=== PATIENT | female | born 1935 | race Caucasian/White ===

== ENCOUNTER → 2017-04-26 | Outpatient (CLI) | payer MEDICARE | END | disposition home or self-care (01) | LOC: GMAJ 12:21 | PROVIDERS: ATTEND Family Medicine | DX: D51.3 Other dietary vitamin B12 deficiency anemia (principal); E55.9 Vitamin D deficiency, unspecified ==

== ENCOUNTER → 2017-06-14 | Outpatient (CLI) | payer MEDICARE ==
--- NOTE | 2017-06-18 07:59 | US ---
EXAM DESCRIPTION: Extremity,Lower [place] Arteries CLINICAL HISTORY: PVD COMPARISON: None. TECHNIQUE: Doppler evaluation of the bilateral lower extremity arterial flow waveforms and velocities. FINDINGS: Arterial waveforms in the right lower extremity are triphasic in the right common femoral artery. Biphasic in the right femoral artery, deep femoral artery, popliteal artery and peroneal artery. Monophasic in the right dorsalis pedis. No flow in the right posterior tibial artery. Arterial waveforms in the left lower extremity are triphasic in the left common femoral artery. Biphasic in the left deep femoral artery, superficial femoral artery, popliteal artery, peroneal artery, and dorsalis pedis artery. No flow in the left EQUIP TECH.. Comments: Atherosclerotic changes are noted on the larger vessels. IMPRESSION: 1. No flow in the bilateral posterior tibial arteries. Flow in the bilateral peroneal arteries, suggesting occlusive lesions in the distal peroneal trunk or proximal EQUIP TECH's. 2. Decreased flow in the right dorsalis pedis artery. Consider follow-up bilateral lower extremity CTA. Electronically signed by: Cesar Jimenez MD 06/18/2017 7:58 AM CDT
== END ==
LOC: US 09:23
PROVIDERS: ATTEND Family Medicine
DX: I70.203 Unspecified atherosclerosis of native arteries of extremities, bilateral legs (principal); M79.89 Other specified soft tissue disorders; R60.0 Localized edema

== ENCOUNTER → 2017-07-23 | Outpatient (CLI) | payer MEDICARE | END | disposition home or self-care (01) | LOC: GMA 16:32 | PROVIDERS: ATTEND Physician Assistant | DX: N39.0 Urinary tract infection, site not specified (principal) ==

== ENCOUNTER → 2017-12-10 | Outpatient (CLI) | payer MEDICARE | LOC: GMAL 10:48 | PROVIDERS: ATTEND Family Medicine | DX: D51.3 Other dietary vitamin B12 deficiency anemia (principal); R53.82 Chronic fatigue, unspecified ==

== ENCOUNTER → 2018-01-03 | Outpatient (CLI) | payer MEDICARE | LOC: GMATM 19:16 | PROVIDERS: ATTEND Nurse Practitioner Family | DX: N39.0 Urinary tract infection, site not specified (principal) ==

== ENCOUNTER 2019-09-27 17:30 | Emergency (ER) | payer MEDICARE ==
--- NOTE | 2019-09-27 17:49 | ED.PDOC ---
History of Present Illness - General Stated Complaint: painful urination Time Seen by Provider: 09/27/19 17:42 Source: patient, RN notes reviewed, Vital Signs reviewed, family Exam Limitations: no limitations Additional Information: this is an 83-year-old white female who presents today with complaints of painful urination. This just started abruptly. She denies having any back pain, nausea, vomiting, or fever. She states that she has had increased frequency as well as burning. Several times per year she reports having urinary tract infections. - History of Present Illness Allergies/Adverse Reactions: Allergies Ciprofloxacin [From Cipro] Allergy (Verified 09/27/19 18:00) Nitrofurantoin [From Macrodantin] Allergy (Verified 09/27/19 18:00) Home Medications: Ambulatory Orders Gabapentin 300 mg PO DAILY 02/16/19 Lisinopril 20 mg PO BID 02/16/19 Lovastatin 20 mg PO DAILY 02/16/19 Metoprolol Tartrate 100 mg PO DAILY 02/16/19 Omeprazole 20 mg PO DAILY 02/16/19 Chlorthalidone 50 mg PO DAILY 09/27/19 Phenazopyridine HCl [Pyridium] 200 mg PO TID #6 tab 09/27/19 Sulfa/Trimeth 800/160 (Ds) Tab [Bactrim DS] 1 tablet PO BID #14 tab 09/27/19 Review of Systems - Review of Systems Constitutional: States: no symptoms reported Respiratory: States: no symptoms reported Gastrointestinal/Abdominal: States: no symptoms reported Genitourinary: States: dysuria, frequency, pain. Denies: discharge, hematuria Skin: States: no symptoms reported Neurological: States: no symptoms reported All other Systems: Reviewed and Negative Past Medical History (General) - Patient Medical History Hx Stroke: No Hx Congestive Heart Failure: No Hx Hypertension: Yes Hx Diabetes: No Hx Gastroesophageal Reflux: Yes Hx MRSA: No - Vaccination History Hx Influenza Vaccination: Yes - 2018 Hx Pneumococcal Vaccination: Yes - Social History Hx Tobacco Use: No Hx Alcohol Use: No Hx Substance Use: No Hx Substance Use Treatment: No Hx Depression: No - Female History Patient : No Family Medical History - Family History Mother Family History: Unknown Living Status: Unknown Physical Exam - Physical Exam General Appearance: Alert, No apparent distress Eyes, Ears, Nose, Throat Exam: PERRL/EOMI, normal ENT inspection Cardiovascular/Respiratory: regular rate, rhythm, no M/R/G, normal peripheral pulses, no JVD, normal breath sounds, no respiratory distress Gastrointestinal/Abdominal: normal bowel sounds, non tender, soft, no organomegaly, no pulsatile mass, other - no suprapubic tenderness Rectal Exam: deferred Back Exam: normal inspection, no CVA tenderness 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 Patient will have urine analysis as well as a urine culture performed. We will treat as appropriate. - Results/Orders Results/Orders: Laboratory Tests 09/27/19 18:00 Urine Color Dk yellow H Urine Appearance Sl cloudy Urine pH 6.5 Ur Specific [place] 1.025 Urine Protein Negative Urine Glucose (UA) Negative Urine Ketones Negative Urine Blood Trace-lysed H Urine Nitrite Negative Urine Bilirubin Negative Urine Urobilinogen 1.0 Ur Leukocyte Esterase Large H Urine RBC 0-1 Urine WBC 30-40 H Ur Epithelial Cells 0-1 Urine Bacteria 1+ Departure - Departure Clinical Impression: Urinary tract infection Qualifiers: Urinary tract infection type: acute cystitis Hematuria presence: with hematuria Qualified Code(s): N30.01 - Acute cystitis with hematuria Time of Disposition: 18:28 Disposition: Discharge to Home or Self Care Condition: Good Instructions: DI for Urinary Tract Infection (UTI) Referrals: Milan Pardo III, MD [Primary Care Provider] - 1-2 Weeks Prescriptions: Phenazopyridine HCl [Pyridium] 200 mg PO TID #6 tab Sulfa/Trimeth 800/160 (Ds) Tab [Bactrim DS] 1 tablet PO BID #14 tab Home Medications: Ambulatory Orders Gabapentin 300 mg PO DAILY 02/16/19 Lisinopril 20 mg PO BID 02/16/19 Lovastatin 20 mg PO DAILY 02/16/19 Metoprolol Tartrate 100 mg PO DAILY 02/16/19 Omeprazole 20 mg PO DAILY 02/16/19 Chlorthalidone 50 mg PO DAILY 09/27/19 Phenazopyridine HCl [Pyridium] 200 mg PO TID #6 tab 09/27/19 Sulfa/Trimeth 800/160 (Ds) Tab [Bactrim DS] 1 tablet PO BID #14 tab 09/27/19 Additional Instructions: Take medications as prescribed until complete. Encourage hydration. If any fever or back pain ensues seek reevaluation and follow up. Return to ER if needed.
[2019-09-27 18:00] VITALS: O2SAT 96
[2019-09-27] MEDS ORDERED: PHENAZOPYRIDINE HCL 200 MG TAB PO ONE (18:27)
[2019-09-27] MEDS ORDERED: SULFA/TRIMETH 800/160 (DS) TAB 1 EA TAB PO ONE (18:27)
[2019-09-27 19:00] VITALS: BP 191/83; TEMP 98.2
== END 2019-09-27 18:44 | disposition home or self-care (01) ==
LOC: ER 17:30
DX: N30.01 Acute cystitis with hematuria (principal); I10 Essential (primary) hypertension; K21.9 Gastro-esophageal reflux disease without esophagitis; Z79.899 Other long term (current) drug therapy; Z88.1 Allergy status to other antibiotic agents

== ENCOUNTER → 2020-06-11 | Outpatient (CLI) | payer MEDICARE | LOC: GMAJS 13:51 | PROVIDERS: ATTEND Physician Assistant | DX: N39.0 Urinary tract infection, site not specified (principal) ==

== ENCOUNTER 2020-07-06 11:31 | Emergency (ER) | payer MEDICARE ==
[2020-07-06 11:45] VITALS: TEMP 96.7
--- NOTE | 2020-07-06 11:47 | ED.PDOC ---
History of Present Illness - General Chief Complaint: General Stated Complaint: Weak, lightheaded Time Seen by Provider: 07/06/20 11:32 Source: patient, family Exam Limitations: no limitations Additional Information: Pt says she was walking towards the voting potter and started to feel generally weak and a little achy in posterior neck. Pt says by the time she was done voting, it felt like it was getting worse. She says she feels much better now. She never had syncope, CP, SOB. She has minimal cough, which is chronic for her. She denies fever, abd pain, N/V/D. She denies urinary symptoms. She says Dr. Pardo has been working over to the past several months to get her BP down (because they've had some difficulties doing so). - History of Present Illness Timing/Duration: 1/2 hour Severity: mild, moderate Improving Factors: rest Worsening Factors: movement Associated Symptoms: weakness Allergies/Adverse Reactions: Allergies Bupropion Allergy (Verified 07/06/20 12:08) Ciprofloxacin [From Cipro] Allergy (Verified 09/27/19 18:00) Doxycycline Allergy (Verified 07/06/20 12:08) Gemfibrozil Allergy (Verified 07/06/20 12:08) Methylprednisolone [From Medrol] Allergy (Verified 07/06/20 12:08) Nitrofurantoin [From Macrodantin] Allergy (Verified 09/27/19 18:00) Sulfa Antibiotics Allergy (Verified 07/06/20 12:08) Home Medications: Ambulatory Orders Lisinopril 20 mg PO BID 02/16/19 Metoprolol Tartrate 100 mg PO BID 02/16/19 Omeprazole 20 mg PO DAILY 02/16/19 Amlodipine Besylate 2.5 mg PO DAILY 07/06/20 Areds 1 ea PO BID 07/06/20 Aspirin [Aspirin Adult Low Dose] 81 mg PO DAILY 07/06/20 Cephalexin Monohydrate [Keflex] 500 mg PO TID #21 cap 07/06/20 Co Q-10 PO DAILY 07/06/20 Ipratropium/Albuterol [Duoneb] 1 saen IN Q6H PRN 07/06/20 Krill Oil PO DAILY 07/06/20 Olopatadine HCl [Olopatadine Hydrochloride] 0.2 % OP DAILY 07/06/20 Potassium 99 mg PO DAILY 07/06/20 Rosuvastatin Calcium 5 mg PO MOWEFRSA 07/06/20 Vitamin D PO DAILY 07/06/20 Vitamin E [E-400] 400 unit PO DAILY 07/06/20 hydrALAZINE HCl [(None)] 25 mg PO TID 07/06/20 Review of Systems - Review of Systems Constitutional: States: weakness. Denies: chills, diaphoresis, fever EENTM: States: no symptoms reported. Denies: blurred vision, double vision, ear pain, nose congestion Respiratory: States: no symptoms reported. Denies: cough, short of breath Gastrointestinal/Abdominal: States: no symptoms reported. Denies: abdominal pain, constipation, diarrhea, nausea, vomiting Genitourinary: States: no symptoms reported. Denies: dysuria, frequency, hematuria Musculoskeletal: States: neck pain - mild posterior neck "ache" Skin: States: no symptoms reported Neurological: States: no symptoms reported. Denies: anxiety, depressed, emotional problems, headache, numbness, paresthesia, tingling, tremors Endocrine: States: no symptoms reported Past Medical History (General) - Patient Medical History Hx Stroke: No Hx Asthma: Yes Hx of COPD: Yes Hx Cardiac Disorders: No Hx Congestive Heart Failure: No Hx Hypertension: Yes Hx Diabetes: No Hx Gastroesophageal Reflux: Yes Hx Cancer: No Hx MRSA: No - Vaccination History Hx Tetanus, Diphtheria Vaccination: Yes Hx Influenza Vaccination: Yes - 2018 Hx Pneumococcal Vaccination: Yes - Social History Hx Tobacco Use: No Hx Alcohol Use: No Hx Substance Use: No Hx Substance Use Treatment: No Hx Depression: No - Female History Patient : No Family Medical History - Family History Mother Family History: Unknown Living Status: Unknown Physical Exam - Physical Exam General Appearance: Alert, No apparent distress, Well Developed, Well Groomed, Well Hydrated, Well Nourished Ears, Nose, Throat: normal ENT inspection, normal pharynx Neck: non-tender, full range of motion, supple, normal inspection Respiratory: chest non-tender, lungs clear, normal breath sounds, no respiratory distress, no accessory muscle use Cardiovascular/Chest: normal peripheral pulses, regular rate, rhythm, no edema, no gallop, no JVD Gastrointestinal/Abdominal: normal bowel sounds, non tender, soft, no organomegaly Extremity: non-tender Neurologic: alert, normal mood/affect, oriented x 3 Skin Exam: normal color, warm/dry Progress - Progress Progress: 07/06/20 12:45 Laboratory Results WBC 7.0 K/mm3 (4.8-10.8) 07/06/20 12:05 RBC 4.58 M/mm3 (4.20-5.40) 07/06/20 12:05 Hgb 13.8 gm/dL (12.0-16.0) 07/06/20 12:05 Hct 40.1 % (36.0-47.0) 07/06/20 12:05 MCV 87.6 fl (81.0-99.0) 07/06/20 12:05 MCH 30.2 pg (27.0-31.0) 07/06/20 12:05 MCHC 34.5 g/dL (33.0-37.0) 07/06/20 12:05 RDW 14.6 % (11.5-14.5) H 07/06/20 12:05 Plt Count 201 K/mm3 (130-400) 07/06/20 12:05 MPV 7.6 fl (7.40-10.4) 07/06/20 12:05 Absolute Neuts (auto) 4.70 K/uL (1.8-6.8) 07/06/20 12:05 Absolute Lymphs (auto) 1.50 K/uL (1.0-3.4) 07/06/20 12:05 Absolute Monos (auto) 0.50 K/uL (0.2-0.8) 07/06/20 12:05 Absolute Eos (auto) 0.20 K/uL (0.0-0.4) 07/06/20 12:05 Absolute Basos (auto) 0.10 K/uL (0.0-0.1) 07/06/20 12:05 Neutrophils % 67.2 % (42.0-78.0) 07/06/20 12:05 Lymphocytes % 21.8 % (20.0-50.0) 07/06/20 12:05 Monocytes % 7.1 % (2.0-9.0) 07/06/20 12:05 Eosinophils % 2.7 % (1.0-5.0) 07/06/20 12:05 Basophils % 1.2 % (0.0-2.0) 07/06/20 12:05 Sodium 134 mmol/L (135-145) L 07/06/20 12:05 Potassium 3.8 mmol/L (3.6-5.0) 07/06/20 12:05 Chloride 99 mmol/L (101-111) L 07/06/20 12:05 Carbon Dioxide 21 mmol/L (21-31) 07/06/20 12:05 Anion Gap 17.8 (12-18) 07/06/20 12:05 BUN 22 mg/dL (7-18) H 07/06/20 12:05 Creatinine 1.54 mg/dL (0.6-1.3) H 07/06/20 12:05 BUN/Creatinine Ratio 14.3 (10-20) 07/06/20 12:05 Random Glucose 127 mg/dL (70-105) H 07/06/20 12:05 Serum Osmolality 273.2 mOsm/L (275-295) L 07/06/20 12:05 Lactic Acid 1.7 mmol/L (0.5-2.2) 07/06/20 12:05 Calcium 8.5 mg/dL (8.4-10.2) 07/06/20 12:05 Total Bilirubin 1.1 mg/dL (0.2-1.0) H 07/06/20 12:05 AST 20 IU/L (10-42) 07/06/20 12:05 ALT 22 IU/L (10-60) 07/06/20 12:05 Alkaline Phosphatase 80 IU/L (42-121) 07/06/20 12:05 Troponin I < 0.02 ng/mL (0.01-0.05) 07/06/20 12:05 Serum Total Protein 6.3 gm/dL (6.4-8.2) L 07/06/20 12:05 Albumin 3.8 g/dl (3.2-5.5) 07/06/20 12:05 Globulin 2.5 gm/dL (2.3-3.5) 07/06/20 12:05 Albumin/Globulin Ratio 1.5 (1.1-1.9) 07/06/20 12:05 Urine Color Yellow (Yellow) 07/06/20 12:45 Urine Appearance Sl cloudy (Clear) 07/06/20 12:45 Urine pH 6.0 (4.5-7.8) 07/06/20 12:45 Ur Specific [place] 1.020 (1.005-1.030) 07/06/20 12:45 Urine Protein Negative mg/dL 07/06/20 12:45 Urine Glucose (UA) Negative mg/dL (Negative) 07/06/20 12:45 Urine Ketones Negative mg/dL (NEGATIVE) 07/06/20 12:45 Urine Blood Negative (Negative) 07/06/20 12:45 Urine Nitrite Negative 07/06/20 12:45 Urine Bilirubin Negative (NEGATIVE) 07/06/20 12:45 Urine Urobilinogen 1.0 mg/dL (0.2-1.0) 07/06/20 12:45 Ur Leukocyte Esterase Small (Negative) H 07/06/20 12:45 Urine RBC 0 /hpf 07/06/20 12:45 Urine WBC 20-30 /hpf H 07/06/20 12:45 Ur Epithelial Cells 5-10 /hpf 07/06/20 12:45 Amorphous Sediment Trace 07/06/20 12:45 Urine Bacteria 1+ 07/06/20 12:45 Urine Mucus Trace 07/06/20 12:45 07/06/20 13:26 Systolic now 164. Pt feels back to baseline. D/w Dr. Pardo. He asked that pt decrease Hydralazine from 25mg TID to BID. He said we could treat urine, but make sure culture is sent. I shared my conversation with Edvin and his instructions to pt and daughter. They expressed no concerns about being d/c home. - EKG/XRAY/CT EKG: Sinus, nonspecific ST T wave Chg Comments: Rate 67, nl intervals, nl axis, no ST elevation Departure - Departure Clinical Impression: Weakness, Dehydration, UTI (urinary tract infection) Time of Disposition: 13:29 Disposition: Discharge to Home or Self Care Condition: Excellent Departure Forms: ED Discharge - Pt. Copy, Patient Portal Self Enrollment Diet: resume usual diet Activity: increase activity as tolerated Referrals: Milan Pardo III, MD [Primary Care Provider] - 1-2 Weeks Prescriptions: Cephalexin Monohydrate [Keflex] 500 mg PO TID #21 cap Home Medications: Ambulatory Orders Lisinopril 20 mg PO BID 02/16/19 Metoprolol Tartrate 100 mg PO BID 02/16/19 Omeprazole 20 mg PO DAILY 02/16/19 Amlodipine Besylate 2.5 mg PO DAILY 07/06/20 Areds 1 ea PO BID 07/06/20 Aspirin [Aspirin Adult Low Dose] 81 mg PO DAILY 07/06/20 Cephalexin Monohydrate [Keflex] 500 mg PO TID #21 cap 07/06/20 Co Q-10 PO DAILY 07/06/20 Ipratropium/Albuterol [Duoneb] 1 sean IN Q6H PRN 07/06/20 Krill Oil PO DAILY 07/06/20 Olopatadine HCl [Olopatadine Hydrochloride] 0.2 % OP DAILY 07/06/20 Potassium 99 mg PO DAILY 07/06/20 Rosuvastatin Calcium 5 mg PO MOWEFRSA 07/06/20 Vitamin D PO DAILY 07/06/20 Vitamin E [E-400] 400 unit PO DAILY 07/06/20 hydrALAZINE HCl [(None)] 25 mg PO TID 07/06/20
[2020-07-06] MEDS ORDERED: SODIUM CHLORIDE 0.9% 1000ML 1,000 ML IVS ONE (11:49)
[2020-07-06 13:58] VITALS: BP 159/87; O2SAT 97
== END 2020-07-06 13:40 | disposition home or self-care (01) ==
LOC: ER 11:31
DX: E86.0 Dehydration (principal); N39.0 Urinary tract infection, site not specified; R53.1 Weakness; J44.9 Chronic obstructive pulmonary disease, unspecified; K21.9 Gastro-esophageal reflux disease without esophagitis; I10 Essential (primary) hypertension; M54.2 Cervicalgia; Z79.899 Other long term (current) drug therapy; Z79.82 Long term (current) use of aspirin; Z88.2 Allergy status to sulfonamides; Z88.8 Allergy status to other drugs, medicaments and biological substances; Z88.1 Allergy status to other antibiotic agents
CPT/HCPCS: 36415; 80053; 81001; 83605; 84484; 85025; 87086; 93005; J7030

== ENCOUNTER → 2020-08-23 | Outpatient (CLI) | payer MEDICARE | LOC: GMAJS 16:46 | PROVIDERS: ATTEND Physician Assistant | DX: R30.0 Dysuria (principal); J06.9 Acute upper respiratory infection, unspecified ==

== ENCOUNTER → 2020-10-04 | Outpatient (CLI) | payer MEDICARE | LOC: GMAL 14:17 | PROVIDERS: ATTEND Family Medicine | DX: R39.15 Urgency of urination (principal) ==

== ENCOUNTER → 2020-10-14 | Outpatient (CLI) | payer MEDICARE ==
--- NOTE | 2020-10-15 08:52 | US ---
EXAM: Renal CLINICAL HISTORY: ACUTE CYSTITIS WITHOU HEMATURIA COMPARISON STUDY: None. FINDINGS: Right kidney measures 9.8 x 4.4 centimeters. The left kidney measures 8.3 x 3.4 centimeters. There is no hydronephrosis. Renal parenchymal thinning is more pronounced on the left. An intracortical calcification measures 4 mm. No visible solid mass or surrounding fluid collection. There is no retroperitoneal abnormality. The aorta and inferior vena cava are visualized. The bladder is unremarkable. There is a complex cystic structure in the right adnexa. IMPRESSION: 1. No hydronephrosis. Mild left renal cortical loss or atrophy is likely age-related. 2. Right adnexal cystic structure. Pelvic ultrasound is recommended. Electronically signed by: Valeriano Davis MD 10/15/2020 8:50 AM [facility]
== END ==
LOC: US 13:22
PROVIDERS: ATTEND Family Medicine
DX: N30.00 Acute cystitis without hematuria (principal); N28.9 Disorder of kidney and ureter, unspecified; N83.9 Noninflammatory disorder of ovary, fallopian tube and broad ligament, unspecified

== ENCOUNTER → 2020-10-22 | Outpatient (CLI) | payer MEDICARE ==
--- NOTE | 2020-10-23 12:38 | US ---
EXAM DESCRIPTION: Pelvic,Non-OB: Ultrasound. CLINICAL HISTORY: 84 years Female OTHER NONINFLAMMATORY DISORDERS OF OV, FALLOPIAN TUBE AND BROAD L. Right adnexal mass and adnexal tenderness. COMPARISON: None TECHNIQUE: Transcutaneous scanning through the urine filled bladder. Jones-scale and Doppler modes. Endovaginal scan not performed due to technical difficulties. FINDINGS: Uterus 6.7 x 4.4 x 3.1 cm. 48.5 mL. Endometrium not well seen. Myometrium heterogeneous. Uterus not retroverted. Cervix not well seen. Cul-de-sac: No fluid.. Right ovary normal tissue not visualized. 2 right adnexal cystic structures measuring 4.0 x 4.1 x 4.5 cm, and 5.1 x 4.3 x 3.5 cm. Total dimensions of both cystic structures: 8.2 x 7.2 x 4.6 cm. Small calcification seen at the base of one of these cystlike structures. No wall thickening. Septation between the 2 cystic structures is not vascular. No mural nodules. No dominant solid mass or fluid collection in the right adnexa. Left ovary not visualized.. No left adnexal cysts. No dominant solid mass, no fluid collection, no calcifications. IMPRESSION: 1. Bilobed cyst with 8.2 cm long axis measurement, in the right adnexa or 2 separate cysts. Ovarian or fallopian origin. Small calcification. No dominant solid mass. No free fluid. [facility] Best Practice guidelines: Multiple ovarian cysts? Most severe: 8.2 cm indeterminate ovarian cyst versus fallopian tube origin. Recommend surgical evaluation. Reference: Radiology 2010 May;256(3):943-54. 2. Left ovary not visualized. Limited visualization of the uterus. Normal orientation. Endometrium and cervix not well seen. No fluid in the cul-de-sac. Electronically signed by: Cesar Jimenez MD 10/23/2020 12:37 PM [employer] [employer]
== END ==
LOC: US 08:51
PROVIDERS: ATTEND Family Medicine
DX: N83.9 Noninflammatory disorder of ovary, fallopian tube and broad ligament, unspecified (principal)

== ENCOUNTER 2020-11-02 18:04 | Emergency (ER) | payer MEDICARE ==
--- NOTE | 2020-11-02 18:23 | ED.PDOC ---
History of Present Illness - General Time Seen by Provider: 11/02/20 18:23 - History of Present Illness Initial Comments: Patient complains of nontraumatic pain in the right knee for the last several days. No known trauma. Pain is improved by resting and worsened by walking and standing. No pain or swelling of the lower leg. Patient denies prior pain in the same knee. Timing/Duration: other - Several days Severity: moderate Improving Factors: rest Worsening Factors: movement Associated Symptoms: denies symptoms Allergies/Adverse Reactions: Allergies Bupropion Allergy (Verified 11/02/20 18:36) Ciprofloxacin [From Cipro] Allergy (Verified 11/02/20 18:36) Doxycycline Allergy (Verified 11/02/20 18:36) Gemfibrozil Allergy (Verified 11/02/20 18:36) Methylprednisolone [From Medrol] Allergy (Verified 11/02/20 18:36) Nitrofurantoin [From Macrodantin] Allergy (Verified 11/02/20 18:36) Sulfa Antibiotics Allergy (Verified 11/02/20 18:36) Home Medications: Ambulatory Orders Lisinopril 20 mg PO BID 02/16/19 Metoprolol Tartrate 100 mg PO BID 02/16/19 Omeprazole 20 mg PO DAILY 02/16/19 Amlodipine Besylate 2.5 mg PO DAILY 07/06/20 Areds 1 ea PO BID 07/06/20 Aspirin [Aspirin Adult Low Dose] 81 mg PO DAILY 07/06/20 Cephalexin Monohydrate [Keflex] 500 mg PO TID #21 cap 07/06/20 Co Q-10 PO DAILY 07/06/20 Ipratropium/Albuterol [Duoneb] 1 sean IN Q6H PRN 07/06/20 Krill Oil PO DAILY 07/06/20 Olopatadine HCl [Olopatadine Hydrochloride] 0.2 % OP DAILY 07/06/20 Potassium 99 mg PO DAILY 07/06/20 Rosuvastatin Calcium 5 mg PO MOWEFRSA 07/06/20 Vitamin D PO DAILY 07/06/20 Vitamin E [E-400] 400 unit PO DAILY 07/06/20 hydrALAZINE HCl [(None)] 25 mg PO TID 07/06/20 Review of Systems - Review of Systems Constitutional: States: no symptoms reported EENTM: States: no symptoms reported Respiratory: States: no symptoms reported Cardiology: States: no symptoms reported Gastrointestinal/Abdominal: States: no symptoms reported Genitourinary: States: no symptoms reported Musculoskeletal: States: see HPI Skin: States: no symptoms reported Neurological: States: no symptoms reported Endocrine: States: no symptoms reported Hematologic/Lymphatic: States: no symptoms reported Past Medical History (General) - Patient Medical History Hx Stroke: No Hx Asthma: Yes Hx of COPD: Yes Hx Cardiac Disorders: No Hx Congestive Heart Failure: No Hx Hypertension: Yes Hx Diabetes: No Hx Gastroesophageal Reflux: Yes Hx Cancer: No Hx MRSA: No - Vaccination History Hx Tetanus, Diphtheria Vaccination: Yes Hx Influenza Vaccination: Yes - 2018 Hx Pneumococcal Vaccination: Yes - Social History Hx Tobacco Use: No Hx Alcohol Use: No Hx Substance Use: No Hx Substance Use Treatment: No Hx Depression: No - Female History Patient : No Family Medical History - Family History Mother Family History: Unknown Living Status: Unknown Physical Exam - Physical Exam General Appearance: Alert, Comfortable Eye Exam: bilateral normal Ears, Nose, Throat: hearing grossly normal Neck: non-tender, full range of motion, supple Respiratory: normal breath sounds Cardiovascular/Chest: normal peripheral pulses, regular rate, rhythm Gastrointestinal/Abdominal: normal bowel sounds, non tender, soft Back Exam: normal inspection, no CVA tenderness Extremity: no calf tenderness, other - Right knee moderately tender anterior surface bilaterally inferior to the patella. No swelling erythema or heat. Full range of motion. No ligamentous laxity. Tejas's test is negative. 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 Mitchell wrap. - Results/Orders Results/Orders: X-rays of the right knee show degenerative changes without other acute findings. Departure - Departure Clinical Impression: Right knee pain, Degenerative joint disease Time of Disposition: 19:14 Disposition: Discharge to Home or Self Care Condition: Good Diet: resume usual diet Activity: other - Reduce walking and standing for several days to allow your knee to feel better. Referrals: Milan Pardo III, MD [Primary Care Provider] - 1-2 Weeks Home Medications: Ambulatory Orders Lisinopril 20 mg PO BID 02/16/19 Metoprolol Tartrate 100 mg PO BID 02/16/19 Omeprazole 20 mg PO DAILY 02/16/19 Amlodipine Besylate 2.5 mg PO DAILY 07/06/20 Areds 1 ea PO BID 07/06/20 Aspirin [Aspirin Adult Low Dose] 81 mg PO DAILY 07/06/20 Cephalexin Monohydrate [Keflex] 500 mg PO TID #21 cap 07/06/20 Co Q-10 PO DAILY 07/06/20 Ipratropium/Albuterol [Duoneb] 1 sean IN Q6H PRN 07/06/20 Krill Oil PO DAILY 07/06/20 Olopatadine HCl [Olopatadine Hydrochloride] 0.2 % OP DAILY 07/06/20 Potassium 99 mg PO DAILY 07/06/20 Rosuvastatin Calcium 5 mg PO MOWEFRSA 07/06/20 Vitamin D PO DAILY 07/06/20 Vitamin E [E-400] 400 unit PO DAILY 07/06/20 hydrALAZINE HCl [(None)] 25 mg PO TID 07/06/20 Comments: Use [id number] Tylenol for pain. See your primary doctor or the orthopedist if your pain persist.
[2020-11-02] MEDS ORDERED: ACETAMINOPHEN W/COD #3 TAB 1 EA TAB PO ONE (18:33)
--- NOTE | 2020-11-02 18:56 | RAD ---
EXAM: Knee,Right Complete CLINICAL INDICATION: Right knee pain COMPARISON: There is no previous study for comparison. FINDINGS: 3 views of the right knee reveal no evidence of a fracture. There is no knee joint effusion. Mild degenerative changes are noted, manifested by joint space narrowing, subchondral sclerosis and/or subchondral cyst formation, and marginal osteophytes, most severe in the patellofemoral compartment. The osseous structures otherwise appear intact and unremarkable. IMPRESSION: Mild degenerative joint disease of the right knee. Electronically signed by: hKai Freed MD 11/02/2020 6:55 PM [facility]
[2020-11-02 19:09] VITALS: O2SAT 95
[2020-11-02 19:29] VITALS: BP 136/82; TEMP 97.3
== END 2020-11-02 19:29 | disposition home or self-care (01) ==
LOC: ER 18:04
DX: M17.11 Unilateral primary osteoarthritis, right knee (principal); Z79.899 Other long term (current) drug therapy; Z79.82 Long term (current) use of aspirin; Z88.8 Allergy status to other drugs, medicaments and biological substances; Z88.1 Allergy status to other antibiotic agents; Z88.2 Allergy status to sulfonamides